=== PATIENT | male | born 1945 | race Caucasian/White ===

== ENCOUNTER 2020-10-23 11:13 | Outpatient (CLI) | payer MEDICARE, SELFPAY ==
--- NOTE | ~2020-10-23 | XR_ITS ---
XR finger 1st RT min 2V DATE: 10/23/2020 11:49 INDICATION: Pain at first metacarpophalangeal joint. Limited range of motion. No injury. TECHNIQUE: 4 views COMPARISON: None FINDINGS: There is mild to moderate osteoarthritic change at the first metacarpophalangeal joint. No fracture, dislocation, periosteal reaction or bone destruction is detected. 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 IMPRESSION: Mild to moderate osteoarthritis at the first metacarpophalangeal valdemar int
--- NOTE | ~2020-10-23 | XR_ITS ---
XR finger 1st LT min 2V DATE: 10/23/2020 11:49 INDICATION: Pain at first metacarpophalangeal joint TECHNIQUE: 4 views COMPARISON: None FINDINGS: There is mild osteoarthritic change at the first carpometacarpal joint and mild to moderate osteoarthritic change at the first metacarpophalangeal joint. No fracture, dislocation, periosteal reaction or bone destruction. IMPRESSION: Mild osteoarthritic change at first carpometacarpal joint Mild to moderate osteoarthritic change at the first metacarpophalangeal joint Reviewed, dictated and finalized at location B.
== END 2020-10-23 11:14 | disposition home or self-care (01) ==
LOC: ANHIMG 11:21
PROVIDERS: PCP Family Medicine; Visit Provider Physician Assistant
DX: M18.0 Bilateral primary osteoarthritis of first carpometacarpal joints (principal); M19.042 Primary osteoarthritis, left hand; M19.041 Primary osteoarthritis, right hand
CPT/HCPCS: 73140

== ENCOUNTER 2021-08-22 15:29 | Outpatient (CLI) | payer MEDICARE, SELFPAY ==
--- NOTE | ~2021-08-22 | US_ITS ---
EXAMINATION: US venous doppler LE RT DATE: 08/22/2021 16:05 INDICATION: Right lower limb swelling TECHNIQUE: Garza scale images without and with compression and Doppler images of the right lower extre mity veins were obtained. COMPARISON: None FINDINGS: The right common femoral vein, profunda femoral vein, femoral vein, popliteal vein, peronea l trunk, posterior tibial veins, and greater saphenous vein are patent. IMPRESSION: 1. Patent right lower extremity veins. No evidence of deep venous thrombosis. Reviewed, dictated and finalized at location F.
== END 2021-08-22 15:30 | disposition home or self-care (01) ==
PROVIDERS: PCP Family Medicine; Visit Provider Family Medicine
DX: M79.89 Other specified soft tissue disorders (principal); M79.604 Pain in right leg
CPT/HCPCS: 93971

== ENCOUNTER 2021-12-19 12:20 | Day surgery (SDC) | payer MEDICARE, SELFPAY ==
[2021-12-10 13:57] VITALS: BMI 26.4
[2021-12-19] MEDS: LACTATED RINGERS 1,000 ML 150 ML IV CONT (13:03)
[2021-12-19 13:06] LABS: Glucose Point of Care 108 mg/dl (65-105)
--- NOTE | 2021-12-19 13:07 | PM.HPGS ---
History of Present Illness History of Present Illness Consent: Risks, benefits, and alternatives have been discussed and questions answered. Patient agrees to proceed with procedure. Chief complaint: History of Polyps Narrative: Mejia Joseph is a 76 year old male Presents for screening colonoscopy. Patient has a prior history of colon polyps in 2017 in 2011. Patient reports that his current weight appetite and bowel movements are normal. Patient denies abdominal pain. He has had no bleeding. Family history is noncontributory. Patient reports a history of atherosclerotic heart disease. Anticoagulation on hold for procedure today. Review of Systems Review of Systems: Review of systems noncontributory. 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 Surgical History Surgical History History of cardiac catheterization (~07/20/17) Family History Family History Father Diabetes mellitus Family history of elevated blood lipids Mother Diabetes mellitus Sibling Diabetes mellitus Social History Social History Smoking packs per day: 1 Smoking cigarettes per day: 20.0 Years smoked: 20 Smoking pack-years: 20.00 Smoking status: Former smoker Tobacco type: cigarettes Smoking end date: 09/18/85 Alcohol intake: current Drinks per week: 4 Substance use: never Substance use type: does not use Living arrangements: with family Spiritual care concerns: No Meds Home Medications and Allergies Home Medications Medication Instructions Recorded Confirmed Type allopurinol 300 mg tablet 300 mg PO DAILY 02/18/19 12/19/21 History aspirin 81 mg tablet,delayed 81 mg PO DAILY 02/18/19 12/19/21 History release atorvastatin 80 mg tablet 80 mg PO DAILY 02/18/19 12/19/21 History lisinopril 20 mg tablet 20 mg PO DAILY 02/18/19 12/19/21 History metformin 1,000 mg tablet 1,000 mg PO BID 02/18/19 12/19/21 History multivitamin 1 tablet PO DAILY 03/01/19 12/19/21 History amlodipine 5 mg tablet 5 mg PO DAILY 02/28/21 12/19/21 History magnesium gluconate 27 mg 27 mg PO ONCE 02/28/21 12/19/21 History magnesium (500 mg) tablet levothyroxine 50 mcg tablet See Rx Instructions .Route 08/05/21 12/19/21 Rx .COMPLEX #90 tabs sodium sul 1.479 gram-potas ch See Rx Instructions PO PER PKG DIR 09/03/21 12/17/21 Rx 0.188 gram-magnes sul 0.225 gram #24 tabs tablet (Sutab) alogliptin 25 mg tablet 25 mg PO DAILY 12/10/21 12/19/21 History hydrocortisone-acetic acid 1 %-2 % 4 drp EACH EAR TID PRN otitis 12/17/21 12/19/21 Rx ear drops externa #10 mL Allergies Allergy/AdvReac Type Severity Reaction Status Date / Time No Known Allergies Allergy Verified 12/19/21 12:58 Exam Narrative: Physical exam reveals patient to be alert. Vital signs stable. HEENT exam is unremarkable. Patient is anicteric. Lungs are clear to auscultation and percussion. Heart is without murmur or extra sounds. Abdomen bowel sounds present soft nontender with no organomegaly. Digital external rectal exam is normal. Assessment and Plan Assessment and plan (1) Screening for colon cancer: Code(s): Z12.11 - Encounter for screening for malignant neoplasm of colon Status: Acute Assessment and Plan: Patient presents today for screening colonoscopy. He has a prior history of colon polyps in 2016 2011. Plan is for colonoscopy at this time. Blood thinners will be held briefl
--- NOTE | 2021-12-19 13:10 | WPDANESEPPF ---
Anes - Initial Pre Proc Eval Procedure: Operation Date: 12/19/21 14:00 Proposed Procedures p Screening Colonoscopy - Lázaro Maria MD Date/Time: 12/19/21 13:10 Surgeon: Lázaro Maria MD Pre Op Diagnosis: History of Polyps Patient Data Age: 76 Gender: M Height: 1.75 m Weight: 81 kg Allergies Allergy/AdvReac Type Severity Reaction Status Date / Time No Known Allergies Allergy Verified 12/19/21 12:58 Home Medications Medication Instructions Recorded Confirmed Type allopurinol 300 mg tablet 300 mg PO DAILY 02/18/19 12/19/21 History aspirin 81 mg tablet,delayed 81 mg PO DAILY 02/18/19 12/19/21 History release atorvastatin 80 mg tablet 80 mg PO DAILY 02/18/19 12/19/21 History lisinopril 20 mg tablet 20 mg PO DAILY 02/18/19 12/19/21 History metformin 1,000 mg tablet 1,000 mg PO BID 02/18/19 12/19/21 History multivitamin 1 tablet PO DAILY 03/01/19 12/19/21 History amlodipine 5 mg tablet 5 mg PO DAILY 02/28/21 12/19/21 History magnesium gluconate 27 mg 27 mg PO ONCE 02/28/21 12/19/21 History magnesium (500 mg) tablet levothyroxine 50 mcg tablet See Rx Instructions .Route 08/05/21 12/19/21 Rx .COMPLEX #90 tabs sodium sul 1.479 gram-potas ch See Rx Instructions PO PER PKG DIR 09/03/21 12/17/21 Rx 0.188 gram-magnes sul 0.225 gram #24 tabs tablet (Sutab) alogliptin 25 mg tablet 25 mg PO DAILY 12/10/21 12/19/21 History hydrocortisone-acetic acid 1 %-2 % 4 drp EACH EAR TID PRN otitis 12/17/21 12/19/21 Rx ear drops externa #10 mL Laboratory Tests 12/19/21 13:04 POC Capillary Glucose 108 mg/dl H mg/dl (65-105) Other studies: echo mod ef 70% Patient hx anesthesia problems: none Family hx anesthesia problems: none Results Review: All pre-operative results and documents have been reviewed as part of the pre-operative evaluation. 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 Surgical History Surgical History History of cardiac catheterization (~07/20/17) Family History Family History Father Diabetes mellitus Family history of elevated blood lipids Mother Diabetes mellitus Sibling Diabetes mellitus Social History Social History Smoking packs per day: 1 Smoking cigarettes per day: 20.0 Years smoked: 20 Smoking pack-years: 20.00 Smoking status: Former smoker Tobacco type: cigarettes Smoking end date: 09/18/85 Alcohol intake: current Drinks per week: 4 Substance use: never Substance use type: does not use Living arrangements: with family Spiritual care concerns: No Anes - Eval Final PreProcedure Day of Procedure 12/19/21 13:10 Patient weight: overweight Heart: regular rate and rhythm and murmur Lungs: clear to auscultation Airway: Mallampati scale class II Neurological: alert and oriented Last oral intake: >/= 8 hours ASA classification: III Emergent: no Anesthetic plan: proceed Anesthesia type and monitoring: general GIVS and standard monitoring Results Review: All pre-operative results and documents have been reviewed as part of the pre-operative evaluation. Informed Consent: The patient's anesthetic plan and its attendant risks and benefits were discussed with the patient/family/POA. Questions were solicited and answers provided to the satisfaction of the patient/family/POA.
[2021-12-19 14:02] VITALS: BP 131/59; PULSE 49; RESP 14; O2SAT 96
[2021-12-19 14:12] VITALS: BP 130/62; PULSE 54; RESP 14; O2SAT 98
[2021-12-19 14:22] VITALS: BP 155/75; PULSE 49; RESP 13; O2SAT 99
--- NOTE | 2021-12-19 14:24 | WPDANESPN ---
Anes - Prog Note Post-Op Date/Time: 12/19/21 14:24 Cardiovascular status: normal Respiratory status: normal Airway patency: baseline Mental status: baseline Post-Op hydration status: normal Vital Signs: Last Vital Signs Pulse 54 L 12/19/21 14:12 Resp 14 12/19/21 14:12 BP 130/62 12/19/21 14:12 Pulse Ox 98 12/19/21 14:12 O2 Del Method Room Air 12/19/21 14:12 Pain Score (VAS): 0 12/19/21 13:04 POC Capillary Glucose 108 H Patient Feedback: Patient satisfied with anesthetic care.
== END 2021-12-19 14:40 | disposition home or self-care (01) ==
PROVIDERS: PCP Family Medicine; Visit Provider Internal Medicine Gastroenterology
PROC: 0DJD8ZZ Inspection of Lower Intestinal Tract, Via Natural or Artificial Opening Endoscopic (ICD-10-PCS; CPT 45378; principal; 2021-12-19 14:00)
DX: Z86.010 Personal history of colon polyps (principal)
CPT/HCPCS: 45385

== ENCOUNTER 2021-12-19 13:00 | Outpatient (NON) | payer MEDICARE, SELFPAY | END 2021-12-19 13:01 | disposition home or self-care (01) | LOC: ANHLAB 12-20 08:31 | PROVIDERS: PCP Family Medicine; Visit Provider Internal Medicine Gastroenterology | DX: D12.5 Benign neoplasm of sigmoid colon (principal); D12.3 Benign neoplasm of transverse colon | CPT/HCPCS: 88305 ==

== ENCOUNTER 2025-02-14 10:04 | Emergency (ER) | payer MEDICARE, SELFPAY ==
--- NOTE | ~2025-02-14 | XR_ITS ---
Examination: XR chest 2V Clinical History: cough x 1 week, eyes watering, coughing up phlegm Comparison: None Technique: PA and Lateral Findings: Cardiomediastinal silhouette normal size and configuration. Lungs clear. No acute bony abnormality. IMPRESSION: 1. No acute cardiopulmonary findings. Reviewed, dictated and finalized at location R. WRAPPER
[2025-02-14 10:13] VITALS: BP 138/80; PULSE 81; RESP 16; TEMP 36.2; O2SAT 99
--- NOTE | 2025-02-14 10:17 | ED.URI ---
HPI - URI/Sore Throat General Chief Complaint: Upper Respiratory Infection Stated Complaint: COUGH/CONGESTION Time Seen by Provider: 02/14/25 10:17 Source: patient, RN notes reviewed and old records reviewed Mode of arrival: ambulatory Limitations: no limitations History of Present Illness HPI Narrative: 79-year-old male presents to the [facility] with complaints of productive coughing congestion for week. States that is more productive at night. Has been taking Mucinex, cough medicine. Denies fevers, chest pain, shortness of breath. Denies any leg swelling. Related Data Home Medications ?Medication ?Instructions ?Recorded ?Confirmed ?Last Taken ?Type allopurinol 300 mg tablet 300 mg PO DAILY 02/18/19 12/22/24 2 Days Ago History ~12/17/21 aspirin 81 mg tablet,delayed 81 mg PO DAILY 02/18/19 12/22/24 2 Days Ago History release ~12/17/21 lisinopril 20 mg tablet 20 mg PO DAILY 02/18/19 12/22/24 2 Days Ago History ~12/17/21 multivitamin 1 tablet PO DAILY 03/01/19 12/22/24 2 Days Ago History ~12/17/21 amlodipine 5 mg tablet 5 mg PO DAILY 02/28/21 12/22/24 2 Days Ago History ~12/17/21 magnesium gluconate 27 mg 27 mg PO ONCE 02/28/21 12/22/24 2 Days Ago History magnesium (500 mg) tablet ~12/17/21 metformin 1,000 mg tablet 1,000 mg PO DAILY 11/02/23 12/22/24 Unknown History sitagliptin 100 mg tablet 100 mg PO DAILY 11/02/23 12/22/24 Unknown History clopidogrel 75 mg tablet (Plavix) 75 mg PO DAILY 03/14/24 12/22/24 Unknown History Allergies Allergy/AdvReac Type Severity Reaction Status Date / Time No Known Allergies Allergy Verified 02/14/25 10:16 Review of Systems Review of Systems: All systems reviewed & are unremarkable except as noted in HPI and below Constitutional: Constitutional: Reports no additional constitutional complaints ENT: Reports system reviewed and no additional complaints, except as documented Cardiovascular: Cardiovascular: Reports no additional cardiovascular complaints, Denies chest pain and Denies dyspnea Respiratory: Respiratory: Reports as per HPI, Reports chest congestion, Reports cough and Denies dyspnea Musculoskeletal: Musculoskeletal: Reports no additional musculoskeletal complaints Integumentary/Breasts: Skin/Breast: Reports system reviewed and no additional complaints, except as docu [facility] Past Medical History Medical History Strep pharyngitis Abnormal colonoscopy (~09/02/16) Chest pain (~2017) Hepatitis C antibody test negative (~11/11/16) Aortic stenosis Neuropathy due to type 2 diabetes mellitus Coronary arteriosclerosis Hypothyroidism Type 2 diabetes mellitus with other diabetic neurological complication Mixed hyperlipidemia Essential hypertension Surgical History Surgical History Aortic valve replaced History of cardiac catheterization (~07/20/17) Family History Family History Father Diabetes mellitus Family history of elevated blood lipids Mother Diabetes mellitus Sibling Diabetes mellitus Social History Social History Smoking packs per day: 1 Smoking cigarettes per day: 20.0 Years smoked: 20 Smoking pack-years: 20.00 Smoking status: Former smoker Tobacco type: cigarettes Smoking end date: 09/18/85 Alcohol intake: current Drinks per week: 4 Substance use: never Substance use type: does not use Lack of Transportation: No Lack of Food: Never True Current Housing: I Have Housing Concerned About Future Housing: No Difficulty Paying Gas/Electric Bills: No Difficulty Paying for Meds: No Currently Unemployed: No Education: Decline to Answer Difficulty w/ Childcare or Family Care: No Living arrangements: with family Spiritual care concerns: No Comments At the time of my signature, I reviewed and agree with the nursing past medical, surgical, social, and family history. There is no relevant family history pertinent to the patient complaint. Exam Const: General: cooperative, healthy appearing, comfortable, no acute distress, well developed, alert and well nourished Nutritional Appearance: well nourished Orientation/consciousness: patient oriented x3 Limitations: no limitations HENMT: Head: normal to inspection Ears: hearing grossly normal bilaterally, external ears normal, TM's normal bilaterally, EAC's normal, mastoids normal and no periauricular adenopathy Mouth: Yes Normal oral and palatal mucosa present, Yes lip normal, Yes tongue normal and Yes moist mucous membranes Throat: posterior oropharynx normal, uvula midline and no uvular edema Eyes: General: appearance normal, both eyes and all related structures Alignment and Position: alignment normal Neck: Neck: normal visual inspection, full ROM, no lymphadenopathy and no meningeal signs Chest: Chest palpation & inspection: normal inspection of the chest Resp: Effort & Inspection: normal respiratory effort and able to speak in complete sentences Auscultation: clear to auscultation bilaterally ( Throughout except for the left lower lobe diminished.), no crackles, no rales, no rhonchi and no wheezes Cardio: Rate: regular rate Skin: General skin exam: normal color and no rashes or lesions noted Neuro: General: patient oriented x3, gait normal, moves all extremities and no meningeal signs Cognition (Neuro): normal cognition Speech: normal speech Gait exam (Neuro): Normal gait present Extrem: General: normal to inspection, full ROM, capillary refill normal and normal gait Psych: Appearance: grossly normal and well kempt Mental Status: mental status grossly normal Speech and movement: Normal speech and movement present and Clear speech present Affect: normal affect Attitude: cooperative Course Course Level of Care: Express Care Visit Vital Signs Vital signs: Vital Signs Temperature 97.2 F L 02/14/25 10:13 Pulse Rate 81 02/14/25 10:13 Respiratory Rate 16 02/14/25 10:13 Blood Pressure 138/80 02/14/25 10:13 Pulse Oximetry 99 02/14/25 10:13 Temperature 97.2 F L 02/14/25 10:13 Pulse Rate 81 02/14/25 10:13 Respiratory Rate 16 02/14/25 10:13 Blood Pressure 138/80 02/14/25 10:13 Pulse Oximetry 99 02/14/25 10:13 Reviewed MDM - URI/Sore Throat MDM Narrative Medical decision making narrative: Patient sitting in exam room. Patient is nontoxic, vitals stable. Patient presents with 1 week history of cough, chest x-ray is negative. Patient is appropriate for outpatient treatment with antibiotic, discussed [id number] products which patient verbalized understanding. Discharge instructions reviewed with patient, as well as provided in writing per nursing staff. The instructions also include specific and strict return/GO TO THE ER as well as f/u information. All questions have been answered, and the patient deny any further questions with discharge and discharge plan. Some parts of this dictation were generated by voice recognition software and may contain typographical and/or grammatical inaccuracies. Differential Diagnosis Differential diagnosis: Likely upper respiratory infection, bronchitis and other ( Pneumonia) Imaging Data Radiologist's impression: Examination: XR chest 2V Clinical History: cough x 1 week, eyes watering, coughing up phlegm Comparison: None Technique: PA and Lateral Findings: Cardiomediastinal silhouette normal size and configuration. Lungs clear. No acute bony abnormality. IMPRESSION: 1. No acute cardiopulmonary findings. Critical Care Time Critical Care Time Critical Care Time: No Discharge Plan Discharge Clinical Impression: Bronchitis Patient Disposition: Home Condition: Stable Instructions: Antibiotic Form, Acute Bronchitis (ED) Additional Instructions: take antibiotic as prescribed stay hydrated today your chest x-ray did not show signs of pneumonia. It is very important to treat your symptoms. Drink plenty of water, Gatorade, Pedialyte, ice pops or Jell-O. - Take Tylenol as needed for pain and fever -Antihistamine medication such as Zyrtec/Claritin during the day can help improve symptoms. -Use Flonase daily to help reduce the inflammation and dry up your sinuses. -You can also use Coricidin HBP. Be sure to drink plenty of water with this medication at least 8 ounces with every dose and it is important to drink 8 to 10 glasses of water per day. Water is a natural decongestant -Eat and drink things that are easy to swallow, like tea or soup, or popsicles. -Oral rinses such as: Salt water gargles and/or may use topical anesthetic (eg. Chloraseptic spray) or lozenges to relieve dryness or throat pain). -Frequent hand washing or hand installation service representative is one of the best ways to prevent spread of infection. -Using a vaporizer or humidifier at night will also help thin secretions and help with coughing up phlegm. -Follow up with primary care provider in 7-10 days if condition is not improving - For new or worsening symptoms go directly to the nearest ER Patient Language: Spanish Prescriptions: New doxycycline monohydrate 100 mg tablet 100 mg PO BID Qty: 14 0RF No Action multivitamin Tablet 1 tablet PO DAILY amlodipine 5 mg tablet 5 mg PO DAILY magnesium gluconate 27 mg magnesium (500 mg) tablet 27 mg PO ONCE metformin 1,000 mg tablet 1,000 mg PO DAILY sitagliptin 100 mg tablet 100 mg PO DAILY clopidogrel [Plavix] 75 mg tablet 75 mg PO DAILY allopurinol 300 mg tablet 300 mg PO DAILY aspirin 81 mg tablet,delayed release (DR/EC) 81 mg PO DAILY lisinopril 20 mg tablet 20 mg PO DAILY levothyroxine 50 mcg tablet 50 mcg PO DAILY Qty: 90 1RF atorvastatin 80 mg tablet 80 mg PO DAILY Qty: 90 1RF allopurinol 100 mg tablet 100 mg PO DAILY Qty: 90 1RF Follow-up/Referrals: Isa Medel DO [Primary Care Provider, Family Practice] - 1 Week Clinical Impression: Bronchitis Time of Disposition: 10:53
== END 2025-02-14 10:59 | disposition home or self-care (01) ==
PROVIDERS: Emergency Provider Nurse Practitioner; PCP Family Medicine
DX: J40 Bronchitis, not specified as acute or chronic (principal); Z87.891 Personal history of nicotine dependence; E11.42 Type 2 diabetes mellitus with diabetic polyneuropathy; Z79.84 Long term (current) use of oral hypoglycemic drugs; I10 Essential (primary) hypertension; E78.2 Mixed hyperlipidemia; E03.9 Hypothyroidism, unspecified; I25.10 Atherosclerotic heart disease of native coronary artery without angina pectoris; I35.0 Nonrheumatic aortic (valve) stenosis; Z95.2 Presence of prosthetic heart valve; Z79.82 Long term (current) use of aspirin; Z79.01 Long term (current) use of anticoagulants
CPT/HCPCS: 71046; 99213; G0463